=== PATIENT | female | born 1950 | race Caucasian/White ===

== ENCOUNTER → 2017-07-11 | Outpatient (CLI) | payer OTHER ==
--- NOTE | ~2017-07-11 | MY29 ---
[facility] A Service of [facility] RADIOLOGY TEXT RESULTS PATIENT: ABDULLAHI DE LA CRUZ LOCATION: [facility] : 50 UNIT #: [id number] AGE: [address]: Gabi Francisco MD SEX: F ORDER DR: [id number] [facility] [address] [place], [place] [address] [id number] O MR#: [id number] Acc #: [id number] NAME: ABDULLAHI DE LA CRUZ : 1950 SEX: F STUDY DATE/TIME: 07/11/2017 7:59 UNIT: [facility] ROOM: STUDY DESCRIPTION: MY KAYLA SCREENING W/ CAD BILAT Attending Physician: Gabi Francisco M.D. Referring Physician: Gabi Francisco M.D. Ordering Physician: Gabi Francisco M.D. Primary Care Physician: Gabi Francisco M.D. MEDICAL IMAGING REPORT This report is preliminary unless electronic signature is present EXAM Digital screening mammogram 07/11/2017. [facility] [place] [facility]. HISTORY 67 year old woman no risk elevation. Personal history of Tim's lymphoma. Annual screening. COMPARISON: Mammograms date 04/21/2008 with most recent 06/30/2016 Digital imaging of each breast was completed utilizing a two-view examination of each breast in craniocaudal and mediolateral-oblique projections. Review and interpretation of digital mammograms include a second review in conjunction with FDA-approved CAD device. There is a normal parenchymal presentation bilaterally consistent with the patient's age. There are no breast masses imaged and no parenchymal asymmetry is visualized. There are no suspicious microcalcifications and I see no focal architectural disturbance. Addendum: the breast parenchyma is fatty replaced. IMPRESSION Negative screening digital mammogram. One-year followup recommended. Patients over the age of 40 are entered into a reminder system with target due date for the next mammogram. A result letter will also be sent to the patient. BIRADS: 1 Negative [facility] A Service of [facility] RADIOLOGY TEXT RESULTS PATIENT: ABDULLAHI DE LA CRUZ LOCATION: [facility] : 50 UNIT #: [id number] AGE: [address]: Gabi Francisco MD SEX: F ORDER DR: Dictated by... Jorden Briceno M.D. THIS IS AN ELECTRONICALLY VERIFIED REPORT Jorden Briceno M.D. at 07/11/2017 3:53 PM KIM/miguel ángel TD: 07/11/2017 14:23 JOB #: [id number] MEDICAL IMAGING REPORT Page 1 of 1 COPY
== END | disposition home or self-care (01) ==
LOC: CWCC 07-04 15:30
DX: Z12.31 Encounter for screening mammogram for malignant neoplasm of breast (principal); Z85.72 Personal history of non-Hodgkin lymphomas
CPT/HCPCS: G0202